=== PATIENT | female | born 1960 | race Caucasian/White ===

== ENCOUNTER 2018-06-04 09:20 | Emergency (ER) | payer BC, OTHER ==
[2018-06-04] MEDS ORDERED: ONDANSETRON ODT 4 MG TABLET TL STA (09:29)
[2018-06-04] MEDS ORDERED: HYDROmorphone 1 MG/ML CARPUJECT IVP STA (09:29)
[2018-06-04] MEDS ORDERED: SODIUM CHLORIDE 0.9% 1,000 ML IV ONE (09:29)
--- NOTE | 2018-06-04 09:35 | ED Physician Documentation ---
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 and pt was unable to ambulate without assistance due to being off balance but the last time he saw her and knows she did not have the face droop was last night no blood thinners otherwise well recently - no fever cough NVD Pmhx DM HTN meds metformin and losartan all morphine Review of Systems Constitutional: denies: Fever, Chills Eyes: denies: Decreased vision, Photophobia Ears: denies: Loss of hearing Cardiac: denies: Chest pain / pressure, Palpitations Respiratory: denies: Dyspnea, Cough GI: denies: Abdominal Pain, Nausea, Vomiting Musculoskeletal: denies: Neck pain Neurologic: reports: Focal weakness, Difficulty speaking, Headache, Head injury. denies: Generalized weakness, Numbness, Altered mental status, LOC Endocrine: denies: Easy bruising / bleeding Immunocompromised: denies: Immunocompromised PD PAST MEDICAL HISTORY - Allergies Allergies/Adverse Reactions: Allergies Allergy/AdvReac Type Severity Reaction Status Date / Time morphine Allergy Itching Verified 06/04/18 09:29 PD ED PE NORMAL - Vitals Vital signs reviewed: Yes - General General: Alert and oriented X 3 - HEENT HEENT: Atraumatic, PERRL, EOMI - Neck Neck: No bony TTP - Cardiac Cardiac: RRR - Respiratory Respiratory: No respiratory distress - Abdomen Abdomen: Soft, Non tender - Derm Derm: Normal color - Neuro Neuro: Alert and oriented X 3, No sensory deficit. 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 intact (L facial droop spares forehead), No motor deficit (L arm drift), Normal speech (slurred) Eye Opening: Spontaneous Motor: Obeys Commands Verbal: Oriented GCS Score: 15 Results - Vitals Vitals: Vital Signs - 24 hr 06/04/18 06/04/18 09:24 10:30 Temperature 35.9 C L Heart Rate 76 84 Respiratory 20 16 Rate Blood Pressure 162/89 H 144/77 H O2 Saturation 98 98 Oxygen O2 Source Room air - EKG (time done) 0932 Rate: Rate (enter#) (71) Rhythm: NSR [place]: Normal Intervals: Normal GA QRS: Normal Ischemia: Normal ST segments - Labs Labs: Laboratory Tests 06/04/18 06/04/18 06/04/18 09:30 09:45 09:45 WBC 10.9 H RBC 5.08 Hgb 14.1 Hct 41.3 MCV 81.4 MCH 27.7 MCHC 34.0 RDW 13.6 Plt Count 356 MPV 7.8 L Neut # (Auto) 7.8 H Lymph # (Auto) 2.3 [place] # (Auto) 0.6 Eos # (Auto) 0.1 Baso # (Auto) 0.1 Absolute Nucleated RBC 0.00 Nucleated RBC % 0.0 PT 13.4 H INR 1.2 Sodium Potassium Chloride Carbon Dioxide Anion Gap BUN Creatinine Estimated GFR (MDRD) Glucose POC Whole Bld Glucose 138 H Calcium Total Bilirubin AST ALT Alkaline Phosphatase Total Protein Albumin Globulin Albumin/Globulin Ratio Lipase 06/04/18 09:45 WBC RBC Hgb Hct MCV MCH MCHC RDW Plt Count MPV Neut # (Auto) Lymph # (Auto) [place] # (Auto) Eos # (Auto) Baso # (Auto) Absolute Nucleated RBC Nucleated RBC % PT INR Sodium 129 L Potassium 3.7 Chloride 93 L Carbon Dioxide 27 Anion Gap 9.0 BUN 8 Creatinine 0.6 Estimated GFR (MDRD) 103 Glucose 153 H POC Whole Bld Glucose Calcium 9.5 Total Bilirubin 0.9 AST 19 ALT 15 Alkaline Phosphatase 39 L Total Protein 7.5 Albumin 4.6 Globulin 2.9 Albumin/Globulin Ratio 1.6 Lipase 28 - Rads (name of study) [facility] Radiology: See rad report (tumor R temporal lobe with hemorrhage likely glioblastoma 5.1 cm with hemorrhage and surrounding vasogenic edema and midline shift 9 mm 2/2 mass effect) CTA neck Radiology: See rad report (incomplete vascular imaging) CTA head Radiology: See rad report (same as CTH) CT CS Radiology: See rad report PD MEDICAL DECISION MAKING - ED course ED course: R brain tumor with bleed edema shift spoke to [place] neuro who rec decadron and speak to neurosurg spoke to [place] neurosurg Dr Sihn Max who accepts pt in transfer and rec keppra 1 g and not to give TXA spoke to [place] parts facilitator Dr Ken Cintron who accepts pt and would like pressure down < 160 with hydralazine or labetolol - was ordering labetolol but now SBP 156 so held not metformin for 3 days - pt advised Departure - Departure Disposition: 02 Transfer Acute Care Hosp Clinical Impression: Brain tumor, Intracranial hemorrhage, Hyponatremia Condition: Fair Discharge Date/Time: 06/04/18 11:54 NIHSS - Time Time: 09:25 - Level of Consciousness Level of consciousness: (0) Alert, Keenly responsive LOC Questions: (0) Answers both Q's correct LOC Commands: (0) Performs both correctly - Gaze Best Gaze: (0) Normal - Visual Visual: (0) No loss - Facial Palsy Facial Palsy: (2) Partial paralysis (forehead spared) - Motor Arms (both separate) Motor Arm (right): (0) No drift Motor Arm (left): (1) Drift - Motor Legs (both separate) Motor Leg (right): (0) No drift Motor Leg (left): (0) No drift - Limb Ataxia Limb Ataxia: (0) Absent - Sensory Sensory: (0) Normal - Best Language Best Language: (0) No aphasia - Dysarthria Dysarthria: (1) [id number] dysarthria - Extinction and Inattention (formally neg Extinction and inattention: (0) No abnormality - Total Score/Results Total Score/Result: 4
[2018-06-04] MEDS ORDERED: IOPAMIDOL-300 100 ML VIAL ONE (09:36)
[2018-06-04 09:51] LABS: BASOPHILS # (AUTO) 0.1 10^3/uL (0.0-0.1); BASOPHILS % (AUTO) 0.5 %; EOSINOPHILS # (AUTO) 0.1 10^3/uL (0.0-0.7); HGB - HEMOGLOBIN 14.1 g/dL (12.0-16.0); LYMPHOCYTES # (AUTO) 2.3 10^3/uL (1.5-3.5); LYMPHOCYTES % (AUTO) 21.1 %; MEAN CORPUSCULAR HEMOGLOBIN 27.7 pg (27.0-31.0); MEAN CORPUSCULAR VOLUME 81.4 fL (81.0-99.0); MEAN PLATELET VOLUME 7.8 fL (7.9-10.8); MONOCYTES # (AUTO) 0.6 10^3/uL (0.0-1.0); MONOCYTES % (AUTO) 5.6 %; NEUTROPHILS # (AUTO) 7.8 10^3/uL (1.5-6.6); NEUTROPHILS % (AUTO) 71.8 %; PLT - PLATELET COUNT 356 10^3/uL (130-450); RED BLOOD COUNT 5.08 10^6/uL (4.20-5.40); RED CELL DISTRIBUTION WIDTH 13.6 % (12.0-15.0); WHITE BLOOD COUNT 10.9 x10^3/uL (4.8-10.8)
[2018-06-04 10:03] LABS: ALBUMIN 4.6 g/dL (3.2-5.5); ALBUMIN/GLOBULIN RATIO 1.6 (1.0-2.2); BILIRUBIN,TOTAL 0.9 mg/dL (0.2-1.0); CALCIUM 9.5 mg/dL (8.5-10.3); CREATININE 0.6 mg/dL (0.4-1.0); INR 1.2 (0.8-1.2); PT - PROTHROMBIN TIME 13.4 secs (9.9-12.6); TOTAL PROTEIN 7.5 g/dL (6.7-8.2)
[2018-06-04] MEDS ORDERED: DEXAMETHASONE 10 MG/ML VIAL IV STA (10:23)
[2018-06-04] MEDS ORDERED: ONDANSETRON 4 MG/2 ML VIAL ONE (10:27)
[2018-06-04] MEDS ORDERED: ONDANSETRON 4 MG/2 ML VIAL IVP STA (10:27)
[2018-06-04] MEDS ORDERED: ACETAMINOPHEN 1,000 MG/100 ML 100 ML IV STA (10:33)
--- NOTE | 2018-06-04 10:37 | CT Report ---
Reason: L facial droop L drift HARDING Procedure Date: 06/04/2018 Accession Number: [id number] / [id number] Procedure: CT - Head W/O Stroke Protocol CPT Code: FULL RESULT: EXAM: CT HEAD EXAM DATE: 06/04/2018 09:51 AM. CLINICAL HISTORY: 57-year-old woman with right-sided weakness. COMPARISON: HEAD ANGIO 06/04/2018 9:57 AM. TECHNIQUE: Multiaxial CT images were obtained from the foramen magnum to the vertex. Reformats: Sagittal and coronal. IV contrast: None. In accordance with CT protocol optimization, one or more of the following dose reduction techniques were utilized for this exam: automated exposure control, adjustment of mA and/or KV based on patient size, or use of iterative reconstructive technique. FINDINGS: Parenchyma: Mass lesion is present in the medial right temporal lobe (better seen on a postcontrast portion of the separate CTA). There is density along the anterior aspect of the mass that measures approximately 2.6 x 1.9 cm in maximum axial dimensions, consistent with hemorrhage. Marked surrounding hypoattenuation is most consistent with infiltrate of edema associated with the mass lesion. Ventricles and Extra-axial Spaces: Right temporal mass lesion and associated infiltrative edema results in midline shift measuring approximate 10 mm at the foramen of [place]. Supratentorial ventricles are compressed, right side more than left. No extra-axial hemorrhage or fluid collection. Orbits: Unremarkable. Sinuses: Paranasal sinuses and mastoid air cells are clear. Extracranial Soft Tissues and Bones: Soft tissues are unremarkable. No fractures. IMPRESSION: 1. Large mass lesion in the medial right temporal lobe with hemorrhagic component along the anterior aspect. (Lesion is better demonstrated on separate CTA.) There is marked surrounding infiltrative edema. Neurosurgical consultation is recommended. 2. Right to left midline shift measures 10 mm at the foramen of [place]ro. [facility] The call report notification system was initiated by Dr. Nathanael Arellano at 10:15 hrs on 06/04/18. The above findings were discussed with Dr. Wells by Dr. Nathanael Arellano at 10:18 hrs on 06/04/18.
--- NOTE | 2018-06-04 10:37 | CT Report ---
Reason: L facial droop drift HARDING Procedure Date: 06/04/2018 Accession Number: [id number] / [id number] Procedure: CT - Head Angio CPT Code: FULL RESULT: EXAM: CT ANGIOGRAM HEAD. CT SCAN OF THE HEAD WITH CONTRAST. EXAM DATE: 06/04/2018 09:57 AM CLINICAL HISTORY: 57-year-old woman with right-sided weakness. COMPARISON: Noncontrast head CT done immediately before. TECHNIQUE: - CT Scan Head: Using a multidetector scanner, axial images were acquired from the foramen magnum to the skull vertex prior to and following contrast administration. - CT Angiogram: Using a multidetector scanner, high-resolution axial images were acquired from the skull base through vertex following rapid infusion of intravenous contrast. Reformats: Multiplanar MIP reformats were reconstructed. Nascet criteria used for stenosis measurement. IV Contrast: ISOVUE 300 80mL. In accordance with CT protocol optimization, one or more of the following dose reduction techniques were utilized for this exam: automated exposure control, adjustment of mA and/or KV based on patient size, or use of iterative reconstructive technique. FINDINGS: CTA HEAD: RIGHT: - Visualized Internal Carotid: Patent without significant stenosis or aneurysm. There is mild atherosclerotic plaque along the siphon. - Anterior Cerebral: Patent without significant stenosis or aneurysm. - Middle Cerebral: Patent without significant stenosis or aneurysm. - Posterior Cerebral: Patent without significant stenosis or aneurysm. - Posterior Communicating: Not well seen. - Visualized Vertebral: Patent and small in caliber, terminating as PICA, a normal variant. LEFT: - Visualized Internal Carotid: Patent without significant stenosis or aneurysm. There is mild atherosclerotic plaque along the siphon. - Anterior Cerebral: Patent without significant stenosis or aneurysm. - Middle Cerebral: Patent without significant stenosis or aneurysm. - Posterior Cerebral: Patent without significant stenosis or aneurysm. - Posterior Communicating: Not well seen. - Visualized Vertebral: Patent without significant stenosis or dissection. The left vertebral artery is dominant. CENTRAL: - Anterior Communicating: Not well seen. - Basilar: Patent without significant stenosis, dissection, or aneurysm. Note: The vertex was excluded from view on this exam due to technical difficulties. POSTCONTRAST HEAD: Peripherally enhancing mass centered in the medial right temporal lobe is demonstrated. This measures approximate 5.1 x 4.4 cm in maximum axial dimensions, including hemorrhagic component along the anterior aspect better demonstrated on the earlier noncontrast exam. Enhancing tissue also appears to extend into the posterior right lateral ventricle. IMPRESSION: POSTCONTRAST HEAD: 1. Peripherally enhancing hemorrhagic mass centered in the right temporal lobe measuring approximately 5.1 x 4.4 cm. Appearance is concerning for high-grade primary neoplasm (glioblastoma) or possibly metastasis. Brain MRI with and without contrast and neurosurgical consultation is recommended. CTA: 1. Normal. No significant vascular stenosis or aneurysm. [facility]
--- NOTE | 2018-06-04 10:40 | CT Report ---
Reason: L facial droop drift HARDING Procedure Date: 06/04/2018 Accession Number: [id number] / [id number] Procedure: CT - Neck Angio CPT Code: FULL RESULT: EXAM: CT ANGIOGRAM NECK EXAM DATE: 06/04/2018 09:57 AM. CLINICAL HISTORY: 57-year-old woman with right-sided extremity weakness. COMPARISON: None. TECHNIQUE: Routine axial helical imaging was attempted from the skull base through the aortic arch. However, the neck was not included in the exam due to technical issues. CTA of the head was acquired and reported separately. IV Contrast: ISOVUE 300 80mL with CTA of the head. In accordance with CT protocol optimization, one or more of the following dose reduction techniques were utilized for this exam: automated exposure control, adjustment of mA and/or KV based on patient size, or use of iterative reconstructive technique. FINDINGS: Right Carotid: The mid to distal cervical ICA is patent without significant stenosis or dissection. Left Carotid: The mid to distal cervical ICA is patent without significant stenosis or dissection. Vertebrals: The distal V2 and V3 segments are patent without significant stenosis or dissection. The left vertebral artery is congenitally dominant. IMPRESSION: 1. The majority of the neck was not included in the [id number] due to technical issues. Findings and limitations discussed with Dr. Wells at 10:18 on 06/04/2018. Repeat imaging is not recommended at this time due to presence of nonvascular lesion in the brain. 2. Distal carotid and vertebral arteries of the neck are patent without significant stenosis or dissection. [facility]
[2018-06-04] MEDS ORDERED: levETIRAcetam INJ 500 MG in SODIUM CHLORIDE 0.9% 100ML 100 ML IV STA (10:55)
--- NOTE | 2018-06-04 11:14 | CT Report ---
Reason: fell HI HARDING L arm weak Procedure Date: 06/04/2018 Accession Number: [id number] / [id number] Procedure: CT - Cervical Spine W/O CPT Code: FULL RESULT: EXAM: CT CERVICAL SPINE WITHOUT CONTRAST DATE: 06/04/2018 09:51 AM. HISTORY: 57-year-old woman status post fall with headache and left arm weakness. COMPARISONS: CERVICAL SPINE W/O 06/04/2018 9:51 AM. TECHNIQUE: Thin-section axial images were acquired of the cervical spine without contrast. Post-processing: Coronal and sagittal reformats. Other: None. In accordance with CT protocol optimization, one or more of the following dose reduction techniques were utilized for this exam: automated exposure control, adjustment of mA and/or KV based on patient size, or use of iterative reconstructive technique. FINDINGS: Alignment: No acute malalignment. There is straightening of normal cervical lordosis, likely positional. Bones: No fracture or bone lesion. Degenerative endplate sclerosis is present at C5-C6. Interspace Levels/Facets: C1-C2: Unremarkable. C2-C3: Unremarkable. C3-C4: No significant narrowing of the bony central canal. Facet hypertrophy is present, left side much worse than right, without significant narrowing of the neural foramina bilaterally. C4-C5: Small posterior disk osteophyte complex results in minimal narrowing of the bony central canal. Facet hypertrophy, left side much worse than right, results in moderate to severe narrowing of the left neural foramen and minimal narrowing on the right. C5-C6: There is moderate disk height loss. Posterior disk osteophyte complex results in mild to moderate narrowing of the bony central canal. Uncovertebral joint hypertrophy results in moderate narrowing of the right neural foramen and mild to moderate narrowing on the left. C6-C7: No significant narrowing of the bony central canal. Uncovertebral joint hypertrophy and facet hypertrophy, left side worse than right, results in mild to moderate narrowing of the left neural foramen without significant narrowing on the right. C7-T1: Unremarkable. Musculature: Normal. No fatty atrophy. Other: The paravertebral and prevertebral soft tissues are unremarkable. The lung apices are clear. IMPRESSION: 1. No acute fracture or malalignment. 2. Degenerative changes result in the following: - C4-C5: Moderate to severe narrowing of the left neural foramen. - C5-C6: Mild to moderate narrowing of the bony central canal. Moderate narrowing of the right neural foramen and mild to moderate narrowing on the left. - C6-C7: Mild to moderate narrowing of the left neural foramen. [facility]
[2018-06-04 13:04] VITALS: BP 144/77
[2018-06-04] MEDS ORDERED: IOPAMIDOL-300 100 ML VIAL IVP ONE (18:46)
== END 2018-06-04 11:54 | disposition short-term general hospital (02) ==
LOC: ED 09:20
DX: D49.6 Neoplasm of unspecified behavior of brain (principal); I62.9 Nontraumatic intracranial hemorrhage, unspecified; R47.1 Dysarthria and anarthria; E87.1 Hypo-osmolality and hyponatremia; E11.9 Type 2 diabetes mellitus without complications; I10 Essential (primary) hypertension; Z79.84 Long term (current) use of oral hypoglycemic drugs
CPT/HCPCS: 36415; 70450; 70496; 70498; 72125; 80053; 83690; 85025; 85610; 93005; 96365; 96368; 96375; 99284; 99285; J0131; Q9967

== ENCOUNTER 2018-09-15 15:51 | Outpatient (CLI) | payer OTHER ==
[2018-09-15 16:23] LABS: ALBUMIN 4.5 g/dL (3.2-5.5); ALBUMIN/GLOBULIN RATIO 1.6 (1.0-2.2); BILIRUBIN,DIRECT 0.1 mg/dL (0.1-0.5); BILIRUBIN,TOTAL 0.6 mg/dL (0.2-1.0); CREATININE 0.6 mg/dL (0.4-1.0); TOTAL PROTEIN 7.3 g/dL (6.7-8.2)
[2018-09-15 16:26] LABS: BASOPHILS % (AUTO) 0.6 %; EOSINOPHILS # (AUTO) 0.1 10^3/uL (0.0-0.7); LYMPHOCYTES # (AUTO) 1.1 10^3/uL (1.5-3.5); LYMPHOCYTES % (AUTO) 20.9 %; MEAN CORPUSCULAR HEMOGLOBIN 28.6 pg (27.0-31.0); MEAN CORPUSCULAR HGB CONC 33.3 g/dL (32.0-36.0); MEAN PLATELET VOLUME 7.7 fL (7.9-10.8); MONOCYTES # (AUTO) 0.6 10^3/uL (0.0-1.0); NEUTROPHILS # (AUTO) 3.3 10^3/uL (1.5-6.6); NEUTROPHILS % (AUTO) 64.5 %; PLT - PLATELET COUNT 257 10^3/uL (130-450); RED BLOOD COUNT 4.56 10^6/uL (4.20-5.40); WHITE BLOOD COUNT 5.1 x10^3/uL (4.8-10.8)
== END 2018-09-15 15:52 | disposition home or self-care (01) ==
LOC: LAB 15:51
PROVIDERS: ATTEND Psychiatry & Neurology Neurology
DX: C71.9 Malignant neoplasm of brain, unspecified (principal)
CPT/HCPCS: 36415; 80053; 82248; 85025

== ENCOUNTER 2018-09-25 12:34 | Outpatient (CLI) | payer OTHER | END 2018-09-25 12:35 | disposition short-term general hospital (02) | LOC: EMS 12:34 | PROVIDERS: ATTEND Surgery | DX: R53.1 Weakness (principal) | CPT/HCPCS: A0425; A0429 ==